=== PATIENT | female | born 1945 | race Caucasian/White ===

== ENCOUNTER → 2019-04-02 | Outpatient (CLI) | payer MEDICARE ==
[~2019-04-02] MED LIST: ALENDRONATE SOD70 MG PO; CETIRIZINE HCL10 MG PO; FENTANYL CITRATE/PF 100MCG/2 ML INJ ONE; LIDOCAINE HCL 1% LOCAL INJ 20 ML VIAL ONE; MIDAZOLAM HCL 2 MG/2 ML VIAL ONE; OMEPRAZOLE40 MG PO; ULTRAM50 MG PO; [UNRECOGNIZED DRUG - OTHER] PO
--- NOTE | 2019-04-02 08:00 | Diagnostic Imaging Report ---
EXAMINATION: PA and lateral views of the chest. COMPARISON: None CLINICAL HISTORY: Mesenteric mass DISCUSSION: The lungs are well-inflated and without focal airspace consolidation, pleural effusion, or pneumothorax. Atherosclerotic calcification of the thoracic aorta. Otherwise normal cardiomediastinal contour. No pulmonary edema. No acute osseous abnormality. IMPRESSION: No acute cardiopulmonary abnormalities. Signed by: Dr. Loy Calzada M.D. on 04/02/2019 7:56 AM
[2019-04-02 08:15] LABS: INR 0.93
[2019-04-02 08:16] LABS: PARTIAL THROMBOPLASTIN TIME 34.7 seconds (23.8-35.5)
--- NOTE | 2019-04-02 11:13 | Diagnostic Imaging Report ---
Date and Time: 04/02/2019 11:00am Procedure: Ultrasound-guided abdominal biopsy lcac radar operator/navigator: Jose Alberto Ayala MD Pre-operative diagnosis: Abdominal mass Post-operative diagnosis: Abdominal mass Conscious Sedation: Versed 0.5 mg and Fentanyl 25 mcg. The patient's heart rate and pulse oximetry were continuously monitored by the interventional radiology nurse. Blood pressure was monitored at 5 minute intervals. Additional Medications: Fluoroscopy time: None Contrast used: None Estimated blood loss: Minimal Specimens: 18-gauge core samples and 22-gauge FNA samples sent for pathology Implants: None PROCEDURE: Preprocedural sonographic evaluation demonstrates large abdominal mass to the left of midline. The patient was prepped and draped in the normal sterile fashion. Full sterile barrier technique was used. Local 1% lidocaine anesthetic was used. Under sonographic guidance, a 16-gauge introducer needle was advanced into the mass, through which an 18-gauge biopsy needle was used to obtain 3 core biopsy samples. Subsequently, 22-gauge FNA needle was used to obtain 5 samples. Following confirmation of adequate tissue sampling by pathology, the needle was removed and hemostasis easily achieved. Sterile dressing was applied. The patient tolerated the procedure well and was transported to the recovery area in good condition. IMPRESSION: Successful ultrasound-guided biopsy of left abdominal mass. Signed by: Jose Alberto Ayala MD on 04/02/2019 11:09 AM
== END ==
LOC: CT 06:58
PROVIDERS: ATTEND Surgery
DX: R19.09 Other intra-abdominal and pelvic swelling, mass and lump (principal)
CPT/HCPCS: 10005; 36415; 49180; 71046; 85049; 85610; 85730; 88172; 88173; 88305; 93005; J2001; J2250; 99152; 99153; J3010

== ENCOUNTER → 2019-04-17 | Day surgery (SDC) | payer MEDICARE ==
--- NOTE | 2019-04-16 15:21 | Diagnostic Imaging Report ---
EXAMINATION: CHEST 2 VIEWS INDICATION: Preop. Surgery ^PREOP ^[id number] ^1450 COMPARISON: 04/02/2019 FINDINGS: TUBES and LINES: None. LUNGS: Lungs are well inflated. Lungs are clear. There is no evidence of pneumonia or pulmonary edema. PLEURA: No pleural effusion or pneumothorax. HEART AND MEDIASTINUM: The cardiomediastinal silhouette is unremarkable. BONES AND SOFT TISSUES: No acute osseous lesion. Soft tissues are unremarkable. UPPER ABDOMEN: No free air under the diaphragm. IMPRESSION: No acute thoracic abnormality. Signed by: Dr. Luciano Ahn M.D. on 04/16/2019 3:17 PM
[2019-04-16 16:05] LABS: BASOPHILS % 0.3 % (0.0-1.0); EOSINOPHILS # (AUTO) 0.1 (0.0-0.4); EOSINOPHILS % 1.3 % (0.0-6.0); HEMATOCRIT 34.6 % (34.2-44.1); LYMPHOCYTES # (AUTO) 0.3 (1.0-3.2); LYMPHOCYTES % 4.3 % (18.0-39.1); MEAN CORPUSCULAR HEMOGLOBIN 26.1 pg (28-32); MEAN CORPUSCULAR HGB CONC 31.8 g/dL (31-35); MEAN CORPUSCULAR VOLUME 82.2 fL (81-99); MONOCYTES # (AUTO) 0.5 (0.2-0.8); MONOCYTES % 7.1 % (4.4-11.3); NEUTROPHILS # (AUTO) 6.5 (2.1-6.9); NEUTROPHILS % 86.6 % (38.7-80.0); PLATELET COUNT 465 x10e3/uL (140-360); RED BLOOD COUNT 4.21 x10e6/uL (3.6-5.1); RED CELL DISTRIBUTION WIDTH 14.6 % (11.7-14.4)
[2019-04-16 16:24] LABS: ANION GAP 15.5 mmol/L (8-16); BLOOD UREA NITROGEN 12 mg/dL (7-26); BUN/CREATININE RATIO 19 (6-25); CALCIUM 9.6 mg/dL (8.4-10.2); CARBON DIOXIDE 26 mmol/L (22-29); CHLORIDE 100 mmol/L (98-107); CREATININE, SERUM 0.62 mg/dL (0.57-1.11); EST GLOMERULAR FILTRATION RATE > 60 ML/MIN (60-); GLUCOSE 99 mg/dL (74-118); POTASSIUM 4.5 mmol/L (3.5-5.1); SODIUM 137 mmol/L (136-145)
[~2019-04-17] MED LIST changes: +BACITRACIN 50,000 UNIT VIAL ONE; +CEFAZOLIN SOD 1 GM VIAL ONE; +CEFAZOLIN SOD 1 GM/NS 50ML 50 ML IV ONE; +DEXAMETHASONE SOD PHOS INJ 4 MG/ML VIAL ONE; +HEPARIN SOD (PORCINE) 5,000 UNIT/ML VIAL ONE; +KETOROLAC TROMETHAMINE 30 MG/ML VIAL ONE; -LIDOCAINE HCL 1% LOCAL INJ 20 ML VIAL ONE; +LIDOCAINE HCL 2% LOCAL INJ 5 ML SDV VIAL INJ ONE; -MIDAZOLAM HCL 2 MG/2 ML VIAL ONE; +ONDANSETRON HCL INJ 2MG/ML 2ML 2 MG/ML VIAL ONE; +PROPOFOL IV EMULSION 10 MG/ML 20 ML VIAL ONE; +SEVOFLURANE INHAL SOLN 250 ML PEN BTL ONE; +SODIUM CHLORIDE 0.9% 500ML 500 ML ONE
--- OUTSIDE RECORDS SUMMARY | 2019-04-17 06:23 | XMS REPORT ---
Author [facility] Address Unknown Phone Unavailable Care Team Providers Care Dish Stacker Name Role Phone CHRISTIANO SOTO Unavailable Unavailable Problems This patient has no known problems. Allergies, Adverse Reactions, Alerts This patient has no known allergies or adverse reactions. Medications This patient has no known medications. Results Test Description Test Time Test Comments Text Results Atomic Results Result Comments CHEST 2 VIEWS 2019-04-16 15:17:00 [place] [address] Patient Name: ARCHANA RIGGS MR #: [id number] : 1945 Age/Sex: 73/F Req #: [id number] Adm Physician: Ordered by: CHRISTIANO SOTO MD Report #: [id number] Location: OR Room/Bed: Procedure: [id number] DX/CHEST 2 VIEWS Exam Date: 04/16/19 Exam Time: 1450 REPORT STATUS: Signed EXAMINATION: CHEST 2 VIEWS INDICATION: Preop. Surgery PREOP [id number] COMPARISON: 04/02/2019 FINDINGS: TUBES and LINES: None. LUNGS: Lungs are well inflated. Lungs are clear. There is no evidence of pneumonia or pulmonary edema. PLEURA: No pleural effusion or pneumothorax. HEART AND MEDIASTINUM: The cardiomediastinal silhouette is unremarkable. BONES AND SOFT TISSUES: No acute osseous lesion. Soft tissues are unremarkable. UPPER ABDOMEN: No free air under the diaphragm. IMPRESSION: No acute thoracic abnormality. Signed by: Dr. Luciano Ahn M.D. on 04/16/2019 3:17 PM Dictated By: LUCIANO AHN MD, MD 16 Transcribed By: SUSANA on 04/16/191516 COPY TO: CHRISTIANO SOTO MD BIOPSY ABDOMINAL MASS 2019-04-02 11:02:00 [place] [address] Patient Name: ARCHANA RIGGS MR #: [id number] : 1945 Age/Sex: 73/F Req #: [id number] Adm Physician: Ordered by: CHRISTIANO SOTO MD Report #: [id number] Location: [place] Room/Bed: Procedure: [id number] IR/BIOPSY ABDOMINAL MASS Exam Date: 04/02/19 Exam Time: 853 REPORT STATUS: Signed Date and Time: 04/02/2019 11:00am Procedure: Ultrasound-guided abdominal biopsy general utility machine operator: Yolanda Marrero MD Pre-operative diagnosis: Abdominal mass Post-operative diagnosis: Abdominal mass Conscious Sedation: Versed 0.5 mg and Fentanyl 25 mcg. The patient's heart rate and pulse oximetry were continuously monitored by the interventional radiology nurse. Blood pressure was monitored at 5 minute intervals. Additional Medications: Fluoroscopy time: None Contrast used: None Estimated blood loss: Minimal Specimens: 18-gauge core samples and 22-gauge FNA samples sent for pathology Implants: None PROCEDURE: Preprocedural sonographic evaluation demonstrates large abdominal mass to the left of midline. The patient was prepped and draped in the normal sterile fashion. Full sterile barrier technique was used. Local 1% lidocaine anesthetic was used. Under sonographic guidance, a 16-gauge introducer needle was advanced into the mass, through which an 18-gauge biopsy needle was used to obtain 3 core biopsy samples. Subsequently, 22-gauge FNA needle was used to obtain 5 samples. Following confirmation of adequate tissue sampling by pathology, the needle was removed and hemostasis easily achieved. Sterile dressing was applied. The patient tolerated the procedure well and was transported to the recovery area in good condition. IMPRESSION: Successful ultrasound- guided biopsy of left abdominal mass. Signed by: Yolanda Marrero MD on 04/02/2019 11:09 AM Dictated By: YOLANDA MARRERO MD 08 Transcribed By: SUSANA on 04/02/191108 COPY TO: CHRISTIANO SOTO MD CHEST 2 VIEWS 2019-04-02 07:54:00 [place] [address] Patient Name: ARCHANA RIGGS MR #: [id number] : 1945 Age/Sex: 73/F Req #: [id number] Adm Physician: Ordered by: CHRISTIANO SOTO MD Report #: [id number] Location: CT Room/Bed: Procedure: [id number] DX/CHEST 2 VIEWS Exam Date: 04/02/19 Exam Time: 0740 REPORT STATUS: Signed EXAMINATION: PA and lateral views of the chest. COMPARISON: None CLINICAL HISTORY: Mesenteric mass DISCUSSION: The lungs are well-inflated and without focal airspace consolidation, pleural effusion, or pneumothorax. Atherosclerotic calcification of the thoracic aorta. Otherwise normal cardiomediastinal contour. No pulmonary edema. No acute osseous abnormality. IMPRESSION: No acute cardiopulmonary abnormalities. Signed by: Dr. Weston Nguyen M.D. on 04/02/2019 7:56 AM Dictated By: WESTON NGUYEN MD 5 Transcribed By: SUSANA on 04/02/19755 COPY TO: CHRISTIANO SOTO MD
--- NOTE | 2019-04-17 09:37 | Diagnostic Imaging Report ---
EXAMINATION: CHEST SINGLE (PORTABLE) INDICATION: Port placement COMPARISON: Chest radiograph of 04/16/2019 FINDINGS: TUBES and LINES: Interval placement of left chest port with tip terminating in the superior vena cava near the confluence of innominate veins. LUNGS: The lungs are mildly hyperinflated with bilateral upper lobe predominant emphysematous changes. PLEURA: No pleural effusion or pneumothorax. HEART AND MEDIASTINUM: The cardiomediastinal silhouette is normal in size and contour. BONES AND SOFT TISSUES: No acute fracture or dislocation. UPPER ABDOMEN: No free air under the diaphragm. IMPRESSION: Interval placement of left chest port with tip terminating in the superior vena cava near the confluence of innominate veins. Mildly hyperinflated lungs with bilateral upper lobe predominant emphysema. Signed by: Jose Alberto Ayala MD on 04/17/2019 9:33 AM
[2019-04-17 10:30] VITALS: BP 139/77
--- NOTE | 2019-04-17 12:07 | Operative Report ---
DATE OF PROCEDURE: 04/17/2019 SURGEON: Omar Krishnan MD PREOPERATIVE DIAGNOSIS: Lymphoma of the abdomen and retroperitoneum. POSTOPERATIVE DIAGNOSIS: Lymphoma of the abdomen and retroperitoneum. PROCEDURE PERFORMED: Insertion of Bard left Port-A-Cath in the left subclavian region, lot #[id number]. ANESTHESIA: General. ESTIMATED BLOOD LOSS: Minimal. DRAINS: None. COMPLICATIONS: None. INDICATION AND FINDINGS: A 73-year-old female with a history of lymphoma. Port-A-Cath was requested for chemotherapy. Under fluoroscopic control, the left Port-A-Cath was placed with the tip of the catheter lying in the superior vena cava right atrial junction. There was good blood flow and the catheter port irrigated easily. DESCRIPTION OF PROCEDURE: With the patient lying on the operative table in the supine position after administration of general anesthesia, she was prepped and draped for left Port-A-Cath placement. The left subclavian vein was percutaneously canalized and then fluoroscopic control revealed the guidewire to be in the right side of the great vessels of the chest. An incision was made across the guidewire entrance into the skin and then a pocket was created using blunt dissection to accommodate the port. The bleeding points were cauterized, the guidewire track was then dilated, the guidewire removed and then the Port-A-Cath was connected to the catheter with the self-locking mechanism and then the catheter was placed into the junction of the superior vena cava right atrial junction as the peel-away sheath was removed. The wound irrigated and bleeding points cauterized, then the port was secured to the pectoral fascia at three different points to prevent motion. The Port-A-Cath was then irrigated again with good blood flow return and no difficulties in irrigation, then the wound irrigated again and closed in two layers using 3-0 Vicryl for the soft tissues and the skin was closed using 5-0 subcuticular Vicryl. Sterile dressing was applied. The patient tolerated the procedure well and taken to recovery room in stable condition. MD AMANDA Lowe/MARYL /[id number]
== END | disposition home or self-care (01) ==
LOC: OR 06:15
PROVIDERS: ATTEND Surgery
DX: C85.93 Non-Hodgkin lymphoma, unspecified, intra-abdominal lymph nodes (principal); E78.00 Pure hypercholesterolemia, unspecified; Z01.810 Encounter for preprocedural cardiovascular examination; Z01.812 Encounter for preprocedural laboratory examination
CPT/HCPCS: 36415; 36561; 71045; 71046; 77001; 80048; 85025; 93005; C1751; J0690 ×2; J1100; J1644; J1885; J2001; J2405; J2704; J3010; J7040